=== PATIENT | female | born 2000 | race Caucasian/White ===

== ENCOUNTER 2022-09-02 21:47 | Emergency (ER) | payer OTHER ==
[2022-09-02 22:12] VITALS: BP 149/82; PULSE 103; RESP 20; TEMP 98.2; BMI 23.3
[2022-09-02 23:58] LABS: URINE APPEARANCE CLEAR; URINE BILIRUBIN NEGATIVE (NEGATIVE); URINE COLOR YELLOW; URINE GLUCOSE (UA) NEGATIVE (NEGATIVE); URINE KETONE NEGATIVE (NEGATIVE); URINE LEUK ESTERASE NEGATIVE (NEGATIVE); URINE NITRITE NEGATIVE (NEGATIVE); URINE PROTEIN NEGATIVE (NEGATIVE)
[2022-09-03 00:01] LABS: HCG,QUALITATIVE URINE Negative
[2022-09-03] MEDS ORDERED: ONDANSETRON *ODT* 4 MG TABLET SL ONE (00:02)
[2022-09-03] MEDS ORDERED: ONDANSETRON *ODT* 4 MG TABLET ONE (00:26)
== END 2022-09-03 00:27 | disposition home or self-care (01) ==
LOC: JER 21:47
DX: R11.0 Nausea (principal)
CPT/HCPCS: 81003; 84703; 87086; 99283-25; Q0162

== ENCOUNTER 2022-09-04 10:33 | Emergency (ER) | payer OTHER ==
[2022-09-04 10:49] VITALS: TEMP 98.5; BMI 26.6
[2022-09-04] MEDS ORDERED: ACETAMINOPHEN 325 MG TABLET (FP) PO ONE (12:28)
[2022-09-04] MEDS ORDERED: ACETAMINOPHEN 325 MG TABLET (FP) ONE (12:49)
[2022-09-04 13:43] LABS: BASO % 0.4 % (0-2.0); EOS % 0.5 % (0-4.5); HEMATOCRIT 38.1 % (32.4-45.2); HEMOGLOBIN 12.4 GM/dL (10.7-15.3); LYMPH % 25.9 % (8-40); MCHC 32.5 g/dl (32.0-36.0); MEAN CELL VOLUME 80.1 fl (80-96); MEAN PLT VOLUME 8.2 fl (7.5-11.1); MONO % 7.5 % (3.8-10.2); NEUT % 65.7 % (42.8-82.8); PLATELET COUNT 249 10^3/uL (134-434); RBC 4.76 M/mm3 (3.60-5.2); RDW 14.9 % (11.6-15.6)
[2022-09-04 13:44] LABS: CHLORIDE 106 mmol/L (98-107); SODIUM 140 mmol/L (136-145)
[2022-09-04 13:46] LABS: CALCIUM 9.8 mg/dL (8.5-10.1)
[2022-09-04 13:47] LABS: ALBUMIN 4.5 g/dl (3.4-5.0); ANION GAP 8 MMOL/L (8-16); BLOOD UREA NITROGEN 8.5 mg/dL (7-18); CO2 25 mmol/L (21-32); GLUCOSE,RANDOM 92 mg/dL (74-106)
[2022-09-04 13:50] LABS: CREATININE 0.8 mg/dL (0.55-1.3); SGOT/AST 15 U/L (15-37); SGPT/ALT 20 U/L (13-61)
[2022-09-04 13:51] LABS: BILIRUBIN,TOTAL 1.5 mg/dL (0.2-1); TOT PROT 7.9 g/dl (6.4-8.2)
[2022-09-04 13:53] LABS: ALK PHOS 65 U/L (45-117)
[2022-09-04 14:23] VITALS: BP 100/78; PULSE 88; RESP 19
== END 2022-09-04 14:55 | disposition home or self-care (01) ==
LOC: JER 10:33
DX: R25.2 Cramp and spasm (principal)
CPT/HCPCS: 36415; 80053; 84702; 85025; 99283-25

== ENCOUNTER 2022-09-18 16:56 | Emergency (ER) | payer OTHER ==
[2022-09-18 16:59] VITALS: BP 118/68; PULSE 104; RESP 18; TEMP 98.4; BMI 28.3
[2022-09-18] MEDS ORDERED: LIDOCAINE VISCOUS 2% ORAL/TOP 15 ML UNIT-DOSE CUP MM ONE (19:36)
[2022-09-18] MEDS ORDERED: FAMOTIDINE 20 MG TABLET PO ONE (19:36)
[2022-09-18] MEDS ORDERED: MAG HYDROX/AL HYDROX/SIMETH 30 ML UNIT-DOSE CUP PO ONE (19:36)
[2022-09-18] MEDS ORDERED: ONDANSETRON *ODT* 4 MG TABLET SL ONE (19:37)
[2022-09-18 20:59] LABS: BASO % 0.7 % (0-2.0); EOS % 2.9 % (0-4.5); HEMATOCRIT 37.7 % (32.4-45.2); HEMOGLOBIN 12.2 GM/dL (10.7-15.3); LYMPH % 43.9 % (8-40); MCH 25.7 pg (25.7-33.7); MCHC 32.4 g/dl (32.0-36.0); MEAN CELL VOLUME 79.4 fl (80-96); MEAN PLT VOLUME 8.5 fl (7.5-11.1); MONO % 7.1 % (3.8-10.2); NEUT % 45.4 % (42.8-82.8); PLATELET COUNT 266 10^3/uL (134-434); RBC 4.75 M/mm3 (3.60-5.2); RDW 15.2 % (11.6-15.6); WHITE BLOOD COUNT 8.5 K/mm3 (4.0-10.0)
[2022-09-18 21:22] LABS: ALBUMIN 4.3 g/dl (3.4-5.0); BLOOD UREA NITROGEN 12.2 mg/dL (7-18); CALCIUM 9.4 mg/dL (8.5-10.1)
[2022-09-18 21:25] LABS: CREATININE 0.8 mg/dL (0.55-1.3); URINE APPEARANCE CLEAR; URINE BILIRUBIN NEGATIVE (NEGATIVE); URINE COLOR YELLOW; URINE GLUCOSE (UA) NEGATIVE (NEGATIVE); URINE KETONE TRACE (NEGATIVE); URINE LEUK ESTERASE NEGATIVE (NEGATIVE); URINE NITRITE NEGATIVE (NEGATIVE); URINE PROTEIN NEGATIVE (NEGATIVE)
[2022-09-18 21:26] LABS: TOT PROT 7.6 g/dl (6.4-8.2)
[2022-09-18] MEDS ORDERED: ONDANSETRON *ODT* 4 MG TABLET ONE (21:32)
[2022-09-18] MEDS ORDERED: FAMOTIDINE 20 MG TABLET ONE (21:32)
[2022-09-18] MEDS ORDERED: LIDOCAINE VISCOUS 2% ORAL/TOP 15 ML UNIT-DOSE CUP ONE (21:32)
[2022-09-18] MEDS ORDERED: MAG HYDROX/AL HYDROX/SIMETH 30 ML UNIT-DOSE CUP ONE (21:33)
== END 2022-09-18 22:10 | disposition home or self-care (01) ==
LOC: JER 16:56
DX: K29.70 Gastritis, unspecified, without bleeding (principal)
CPT/HCPCS: 36415; 76705-TC; 80053; 81003; 83690; 84703; 85025; 99284-25; Q0162

== ENCOUNTER 2022-09-27 12:14 | Emergency (ER) | payer OTHER ==
[2022-09-27 12:23] VITALS: BP 135/74; PULSE 84; RESP 20; TEMP 98; BMI 27.1
[2022-09-27 13:45] LABS: EPI CELLS 22 /uL (0-25.1); HYALINE CASTS 0 /uL (0-3.1); URINE APPEARANCE CLEAR; URINE BACTERIA 174 /uL (0-1359); URINE BILIRUBIN NEGATIVE (NEGATIVE); URINE COLOR YELLOW; URINE GLUCOSE (UA) NEGATIVE (NEGATIVE); URINE KETONE TRACE (NEGATIVE); URINE LEUK ESTERASE TRACE (NEGATIVE); URINE NITRITE NEGATIVE (NEGATIVE); URINE PROTEIN NEGATIVE (NEGATIVE); URINE RBC 26 /uL (0-23.9); URINE UROBILINOGEN 0.2 mg/dL (0.2-1.0); URINE WBC 9 /uL (0-25.8)
[2022-09-27 13:57] LABS: HCG,QUALITATIVE URINE Negative
== END 2022-09-27 14:33 | disposition home or self-care (01) ==
LOC: JERFT 12:14 → JER 12:14
DX: N92.6 Irregular menstruation, unspecified (principal)
CPT/HCPCS: 81003; 84703; 87086; 99283-25

== ENCOUNTER 2022-11-06 16:14 | Emergency (ER) | payer OTHER ==
[2022-11-06 16:22] VITALS: BP 112/71; PULSE 99; RESP 18; TEMP 98.1; BMI 27.4
[2022-11-06 18:15] LABS: THROAT:GRP A STREP NOT DETECTED (NOTDETECTED)
== END 2022-11-06 19:29 | disposition home or self-care (01) ==
LOC: JER 16:14 → JERFT 16:14
DX: J01.90 Acute sinusitis, unspecified (principal); R19.7 Diarrhea, unspecified
CPT/HCPCS: 0241U-QW; 87070; 87186; 87651; 99283-25

== ENCOUNTER 2023-01-25 00:48 | Emergency (ER) | payer OTHER ==
[2023-01-25 01:01] VITALS: BP 109/72; PULSE 67; RESP 18; TEMP 98
[2023-01-25] MEDS ORDERED: metroNIDAZOLE 250 MG TABLET PO ONE (01:46)
[2023-01-25] MEDS ORDERED: metroNIDAZOLE 250 MG TABLET ONE (01:56)
== END 2023-01-25 03:35 | disposition home or self-care (01) ==
LOC: JER 00:48
DX: K08.89 Other specified disorders of teeth and supporting structures (principal); R07.0 Pain in throat
CPT/HCPCS: 87070; 87651; 99283-25

== ENCOUNTER 2023-05-15 18:37 | Emergency (ER) | payer SELFPAY ==
[2023-05-15 18:43] VITALS: BP 101/66; PULSE 103; RESP 16; TEMP 98.3; BMI 27.4
[2023-05-15] MEDS ORDERED: AMOXICILLIN 500 MG CAPSULE (FP) PO ONE (19:10)
[2023-05-15] MEDS ORDERED: IBUPROFEN 600 MG TABLET (FP) PO ONE ×3 (19:10→19:12)
[2023-05-15] MEDS ORDERED: AMOXICILLIN 250 MG CAPSULE ONE (19:12)
== END 2023-05-15 19:21 | disposition home or self-care (01) ==
LOC: JERFT 18:37
DX: K08.89 Other specified disorders of teeth and supporting structures (principal); K02.7 Dental root caries
CPT/HCPCS: 99283-25

== ENCOUNTER 2023-11-29 16:14 | Emergency (ER) | payer OTHER ==
[2023-11-29 16:34] VITALS: BP 121/84; PULSE 96; RESP 20; TEMP 98.4; BMI 29.2
[2023-11-29] MEDS ORDERED: ACETAMINOPHEN INJECTION 100 ML IVPB ONE (17:53)
[2023-11-29] MEDS ORDERED: FAMOTIDINE 20 MG/50 ML IVPB 20 MG/50 ML MG IVPB ONE (17:54)
[2023-11-29] MEDS ORDERED: MAG HYDROX/AL HYDROX/SIMETH 30 ML UNIT-DOSE CUP ONE (17:54)
[2023-11-29] MEDS ORDERED: ONDANSETRON 4 MG/2 ML VIAL ONE (17:54)
[2023-11-29] MEDS: MAG HYDROX/AL HYDROX/SIMETH 30 ML UNIT-DOSE CUP PO ONE (18:03)
[2023-11-29] MEDS: SODIUM CHLORIDE 0.9% 500 ML INFUS.BAG IV ONE (18:03)
[2023-11-29] MEDS: FAMOTIDINE 20 MG/50 ML IVPB 20 MG/50 ML MG IVPB ONE (18:03)
[2023-11-29] MEDS: ACETAMINOPHEN 1000 MG/100 ML BAG IVPB ONE (18:03)
[2023-11-29] MEDS: ONDANSETRON 4 MG/2 ML VIAL IVPUSH ONE (18:04)
[2023-11-29 18:07] LABS: BASO % 0.9 % (0-2.0); EOS % 1.2 % (0-4.5); HEMATOCRIT 37.5 % (32.4-45.2); HEMOGLOBIN 12.4 GM/dL (10.7-15.3); LYMPH % 41.6 % (8-40); MCH 26.4 pg (25.7-33.7); MCHC 33.2 g/dl (32.0-36.0); MEAN CELL VOLUME 79.5 fl (80-96); MEAN PLT VOLUME 8.3 fl (7.5-11.1); MONO % 8.9 % (3.8-10.2); NEUT % 47.4 % (42.8-82.8); PLATELET COUNT 228 10^3/uL (134-434); RBC 4.71 M/mm3 (3.60-5.2); RDW 15.1 % (11.6-15.6); WHITE BLOOD COUNT 9.5 K/mm3 (4.0-10.0)
[2023-11-29 18:12] LABS: EPI CELLS >36 /uL (0-25.1); HCG,QUALITATIVE URINE Negative; HYALINE CASTS 2 /uL (0-3.1); PH,URINE 5.5 (5.0-8.0); URINE APPEARANCE CLEAR; URINE BACTERIA 1192 /uL (0-1359); URINE BILIRUBIN NEGATIVE (NEGATIVE); URINE COLOR YELLOW; URINE GLUCOSE (UA) NEGATIVE (NEGATIVE); URINE KETONE NEGATIVE (NEGATIVE); URINE LEUK ESTERASE 1+ (NEGATIVE); URINE NITRITE NEGATIVE (NEGATIVE); URINE PROTEIN NEGATIVE (NEGATIVE); URINE WBC 81 /uL (0-25.8)
[2023-11-29 18:18] LABS: URINE RBC 54.6 /uL (0-23.9)
[2023-11-29 18:28] LABS: POTASSIUM 4.3 mmol/L (3.5-5.1)
[2023-11-29 18:30] LABS: CALCIUM 9.3 mg/dL (8.5-10.1)
[2023-11-29 18:31] LABS: ALBUMIN 4.3 g/dl (3.4-5.0); BLOOD UREA NITROGEN 11.2 mg/dL (7-18)
[2023-11-29 18:34] LABS: CREATININE 0.7 mg/dL (0.55-1.3)
[2023-11-29 18:35] LABS: BILIRUBIN,TOTAL 1.3 mg/dL (0.2-1); TOT PROT 7.7 g/dl (6.4-8.2)
== END 2023-11-29 20:36 | disposition home or self-care (01) ==
LOC: JER 16:14
PROC: 3E033GC Introduction of Other Therapeutic Substance into Peripheral Vein, Percutaneous Approach (ICD-10-PCS; principal; 2023-11-29)
PROC: 3E033GC Introduction of Other Therapeutic Substance into Peripheral Vein, Percutaneous Approach (ICD-10-PCS; 2023-11-29)
PROC: 3E033NZ Introduction of Analgesics, Hypnotics, Sedatives into Peripheral Vein, Percutaneous Approach (ICD-10-PCS; 2023-11-29)
DX: R10.13 Epigastric pain (principal); R11.2 Nausea with vomiting, unspecified; Z20.822 Contact with and (suspected) exposure to COVID-19
CPT/HCPCS: 0241U-QW; 36415; 76705-TC; 80053; 81003; 84703; 85025; 87086; 93005; 93010; 96365; 96375; 99285-25; J0131